=== PATIENT | female | born 1960 | race Caucasian/White ===

== ENCOUNTER → 2016-09-25 | Outpatient (CLI) | payer OTHER ==
[~2016-09-25] MED LIST: ALLERGY RELIEF10 M3 PO; ASPIRIN81 M1 PO; ATARAX; BLACK COHOSH540 MG PO; CALCIUM 500 + D1 TAB; CALTRATE 600+D PO; CLARITIN10 M3 PO; CYMBALTA30 MG PO; LORAZEPAM1 MG PO; METOPROLOL TAR25 MG PO; MULTIPLE VITAMI1 T11 PO; MULTIVITAMIN1 UDCAP PO; NABUMETONE500 M1 PO; PRILOSEC40 MG PO; PYRIDIUM PO; PYRIDIUM100 MG PO; UNISOM50 M1 PO; ZETIA PO
--- NOTE | ~2016-09-25 | MY11 ---
[facility] A Service of [facility] RADIOLOGY TEXT RESULTS PATIENT: DESTINI HORNE LOCATION: [facility] : 58 UNIT #: [id number] AGE: [address]: Asa Moran MD SEX: F ORDER DR: [id number] [facility] [address] [place], [place] [address] [id number] O MR#: [id number] Acc #: [id number] NAME: DESTINI HORNE. : 1960 SEX: F STUDY DATE/TIME: 09/25/2016 8:36 UNIT: [facility] ROOM: STUDY DESCRIPTION: MY Mammogram Screening Dig Kostas Attending Physician: Asa Moran Jr., M.D. Referring Physician: Asa Moran Jr., M.D. Ordering Physician: Asa Moran Jr., M.D. Primary Care Physician: Asa Moran Jr., M.D. MEDICAL IMAGING REPORT This report is preliminary unless electronic signature is present EXAM Screening mammogram, 09/25 INDICATION 56-year-old with no personal or family history of breast cancer. No current complaints. FINDINGS Routine digital screening views of both breasts were obtained. Study is reviewed with an FDA-approved CAD device. Comparison is made with 01/18/2015, 11/02/2012. Breast parenchyma shows scattered fibroglandular densities. No masses or suspicious microcalcifications are seen. There are a few benign calcifications in both breasts. IMPRESSION Benign mammogram. Routine screen in one year recommended. Patients over the age of 40 are entered into a reminder system with target due date for the next mammogram. A result letter will also be sent to the patient. BIRADS: 2 Benign Finding Dictated by... Asher Sanchez Jr., M.D. THIS IS AN ELECTRONICALLY VERIFIED REPORT Asher Sanchez Jr., M.D. at 09/25/2016 12:30 PM Shyann TD: 09/25/2016 12:08 [facility] A Service of [facility] & [facility] RADIOLOGY TEXT RESULTS PATIENT: DESTINI HORNE LOCATION: [facility] : 58 UNIT #: [id number] AGE: [address]: Asa Moran MD SEX: F ORDER DR: JOB #: [id number] MEDICAL IMAGING REPORT COPY
== END | disposition home or self-care (01) ==
LOC: CWCC 08:12
DX: Z12.31 Encounter for screening mammogram for malignant neoplasm of breast (principal)
CPT/HCPCS: G0202